=== PATIENT | female | born 1995 | race Caucasian/White ===

== ENCOUNTER → 2023-01-21 06:47 | Outpatient (CLI) | payer MEDICAID, SELFPAY ==
[2023-01-23 21:28] LABS: Progesterone 9.1
== END ==
PROVIDERS: PCP Nurse Practitioner Obstetrics & Gynecology; Visit Provider Nurse Practitioner Obstetrics & Gynecology
DX: Z34.91 Encounter for supervision of normal pregnancy, unspecified, first trimester (principal); Z3A.08 8 weeks gestation of pregnancy
CPT/HCPCS: 36415; 84144; 84702

== ENCOUNTER → 2023-01-21 13:48 | Outpatient (CLI) | payer MEDICAID, SELFPAY | PROVIDERS: Visit Provider Nurse Practitioner Obstetrics & Gynecology | DX: Z34.90 Encounter for supervision of normal pregnancy, unspecified, unspecified trimester (principal) | CPT/HCPCS: 36415; 84144; 84702 ==

== ENCOUNTER → 2023-01-27 15:06 | Outpatient (CLI) | payer MEDICAID, SELFPAY ==
--- NOTE | 2023-01-27 15:09 | US_ITS ---
PROCEDURE: US OB <= 14 WEEKS FETUS CLINICAL INDICATION: for dates COMPARISON: No exams were available for comparison FINDINGS: Transvaginal transabdominal sonographic images of the pelvis were obtained. From her last menstrual period she is 9weeks 4days. An intrauterine gestational sac is present with a pole with a crown-rump length of 2.32cm This correlates to a gestational age of 9weeks 1day. heart tones are present with an FHR of 172bpm. Yolk sac is noted. The yolk sac measures 4.9mm. The right ovary is seen transabdominally and appears normal. The left ovary is not visualized. There is no fluid in the cul-de-sac. IMPRESSION: 1. Viable fetus within the uterine cavity. 2. Fetus measures 9 weeks and 1 day. This makes her MIR 08/31/2023. 3. Right ovary is seen and appears normal. Left ovary is not visualized. 4. No fluid in the cul-de-sac Dictated by: Fernando Price MD 01/27/2023 18:45 Fernando Price MD in [facility] 01/27/2023 18:45
== END ==
PROVIDERS: PCP Internal Medicine; Visit Provider Nurse Practitioner Obstetrics & Gynecology
DX: Z34.91 Encounter for supervision of normal pregnancy, unspecified, first trimester (principal); Z3A.09 9 weeks gestation of pregnancy
CPT/HCPCS: 76801

== ENCOUNTER 2023-03-18 15:11 | Outpatient (CLI) | payer MEDICAID, SELFPAY ==
[2023-03-18 15:31] LABS: Basophils % 0.4 % (0.1-2.0); Eosinophils # 0.2 K/mm3 (0.0-0.4); Hematocrit 36.5 % (37.0-47.0); Hemoglobin 12.3 g/dL (12.2-16.2); Lymphocytes # 1.8 K/mm3 (0.7-4.5); Mean Corpuscular HGB Conc 33.6 g/dL (31.8-35.4); Mean Corpuscular Hemoglobin 27.7 pg (27.0-31.2); Mean Corpuscular Volume 82.4 fl (81-99); Monocytes # 0.3 K/mm3 (0.1-1.0); Monocytes % 3.2 % (1.7-9.3); Neutrophils # 6.9 K/mm3 (1.8-7.8); Neutrophils % 75.3 % (37.0-80.0); Platelet Count 297 K/mm3 (142-424); Red Blood Count 4.43 M/mm3 (4.20-5.40); Red Cell Distribution Width 16.7 % (11.5-17.5); White Blood Count 9.2 K/mm3 (4.8-10.8)
[2023-03-20 05:44] LABS: HIV Screen 4th Generation wRfx Non Reactive (Non Reactive)
[2023-03-20 08:29] LABS: Rubella Antibodies, IgG 2.79 index (Immune >0.99)
[2023-03-20 12:49] LABS: Rapid Plasma Reagin Ab Titer Non Reactive titer (NonRea<1:1)
[2023-03-25 09:33] LABS: Hepatitis B Surface Antigen Negative; Hepatitis C Antibody Non Reactive
[2023-03-25 09:34] LABS: Progesterone 34.3
== END 2023-03-18 23:59 ==
LOC: LAB 15:11
PROVIDERS: Visit Provider Nurse Practitioner Obstetrics & Gynecology
DX: N92.6 Irregular menstruation, unspecified (principal); Z34.92 Encounter for supervision of normal pregnancy, unspecified, second trimester; Z3A.16 16 weeks gestation of pregnancy
CPT/HCPCS: 36415; 84144; 85025; 86593; 86703; 86762; 86850; 87340; 87380; G0432

== ENCOUNTER 2023-04-15 13:53 | Outpatient (CLI) | payer MEDICAID, SELFPAY ==
--- NOTE | 2023-04-15 14:01 | US_ITS ---
PROCEDURE: US OB /MATERNAL DETAIL CLINICAL INDICATION: 20 week anatomy scan COMPARISON: No exams were available for comparison FINDINGS: Transabdominal sonographic images of the pelvis were obtained. From her established due date she is 20 weeks 2 days. Single viable intrauterine gestation. Cephalic position. Placenta: Anteriorplacenta grade 1. There is an average amount of fluid. The cervix appears satisfactory. Closed and measuring 4.3 cm in length. Complete survey performed and was unremarkable on the submitted images as in PACS. No discrete anomalies identified on survey imaging by technologist. Active fetus. Three-vessel cord with satisfactory umbilical cord insertion. 4- chamber heart noted. Situs, aortic arch, LVOT, three-vessel view appear normal. Survey of brain & ventricles Unremarkable. Cerebellum, thalamus, choroid plexus, cisterna magna appear normal. Face and neck survey unremarkable. Profile, nasion, lips and nose appeared normal. Diaphragm and chest views unremarkable. Abdomen: Both kidneys noted and unremarkable. Stomach and bladder noted and satisfactory. Spine: Survey of the spine satisfactory with no anomalies identified nor imaged. Cervical, thoracic, lower spine appear normal. Both arms and legs noted. Amniotic Fluid: Adequate. Measurements: Average ultrasound age 20weeks 1day. Estimated due date by ultrasound age 0609/01/2023. Estimated weight 333g BPD = 19weeks 4days HC = 20weeks 0 days AC = 20weeks 1day FL = 20weeks 3days Growth Percentile= 36 Heart Rate = 147bpm Cerebellum = 19weeks 6days Humerus = 20weeks 5days HC/AC is 1.18 FL/BPD is 0.74 FL/AC is 0.22 IMPRESSION: 1. Viable fetus in the cephalic position with an anterior placenta grade 1. 2. The fluid is within normal limits. 3. Anatomical scan appears normal. 4. heart anatomy was difficult to visualize due to position. Recommend repeat cardiac views in 2-4 weeks. 5. biometry is consistent with a dates. Dictated by: Fernando Price MD 04/15/2023 16:49 Fernando Price MD in [facility] 04/15/2023 16:49
== END 2023-04-15 23:59 ==
LOC: RAD 13:54
PROVIDERS: Visit Provider Nurse Practitioner Obstetrics & Gynecology
DX: Z34.92 Encounter for supervision of normal pregnancy, unspecified, second trimester (principal); Z3A.20 20 weeks gestation of pregnancy
CPT/HCPCS: 76811

== ENCOUNTER 2023-04-30 13:00 | Outpatient (CLI) | payer MEDICAID, SELFPAY ==
--- NOTE | 2023-04-30 13:05 | US_ITS ---
PROCEDURE: US OB FOLLOW UP CLINICAL INDICATION: Re-evaluate cardiac scan COMPARISON: US US OB /MATERNAL DETAIL from 04/15/2023 FINDINGS: Transabdominal sonographic images of the pelvis were obtained. The following parameters are obtained: From her established due date she is 22weeks 3days Viable fetus in the breech then turned to cephalic presentation with an anterior placenta grade 1. The cervix measures 4.3 cm. Amniotic fluid appears normal. heart rate: 139bpm bpm. No obvious anomalies evident. profile seen, kidneys, three-vessel cord, LVOT, RVOT, three-vessel view, four-chamber view appear normal. IMPRESSION: 1. Viable fetus in the cephalic presentation with an anterior placenta grade 1. 2. The fluid is within normal limits. 3. Cardiac scan today appears normal. Somewhat difficult examination due to position. 4. Limited anatomic scan appears normal. Dictated by: Fernando Price MD 04/30/2023 15:22 Fernando Price MD in [facility] 04/30/2023 15:22
== END 2023-04-30 23:59 ==
LOC: RAD 13:03
PROVIDERS: Visit Provider Nurse Practitioner Obstetrics & Gynecology
DX: O26.892 Other specified pregnancy related conditions, second trimester (principal); Z3A.22 22 weeks gestation of pregnancy; Z36.2 Encounter for other antenatal screening follow-up
CPT/HCPCS: 76816

== ENCOUNTER 2023-06-11 12:18 | Outpatient (CLI) | payer MEDICAID, SELFPAY ==
[2023-06-11 12:55] LABS: Basophils # 0.1 K/mm3 (0-0.2); Basophils % 0.6 % (0.1-2.0); Eosinophils # 0.2 K/mm3 (0.0-0.4); Eosinophils % 1.5 % (0.1-12.0); Hematocrit 38.5 % (37.0-47.0); Hemoglobin 12.4 g/dL (12.2-16.2); Lymphocytes # 1.8 K/mm3 (0.7-4.5); Lymphocytes % 15.7 % (10-50); Mean Corpuscular HGB Conc 32.2 g/dL (31.8-35.4); Mean Corpuscular Hemoglobin 29.4 pg (27.0-31.2); Mean Platelet Volume 8.3 fl (7.4-10.4); Monocytes # 0.4 K/mm3 (0.1-1.0); Monocytes % 3.3 % (1.7-9.3); Neutrophils # 9.2 K/mm3 (1.8-7.8); Neutrophils % 78.9 % (37.0-80.0); Platelet Count 308 K/mm3 (142-424); Red Blood Count 4.23 M/mm3 (4.20-5.40); Red Cell Distribution Width 15.5 % (11.5-17.5); White Blood Count 11.6 K/mm3 (4.8-10.8)
[2023-06-11 13:30] LABS: Glucose,Fasting 94 mg/dl (74-100)
[2023-06-11 14:37] LABS: Glucose 1 Hour 154 mg/dL (74-100)
== END 2023-06-11 23:59 ==
LOC: LAB 12:18
PROVIDERS: PCP Internal Medicine; Visit Provider Nurse Practitioner Obstetrics & Gynecology
DX: O26.892 Other specified pregnancy related conditions, second trimester (principal); Z3A.20 20 weeks gestation of pregnancy
CPT/HCPCS: 36415; 82951; 85025

== ENCOUNTER 2023-07-24 09:56 | Outpatient (CLI) | payer MEDICAID, SELFPAY ==
[2023-07-24 11:11] LABS: Glucose,Fasting 99 mg/dl (74-100)
[2023-07-24 12:06] LABS: Glucose 1 Hour 190 mg/dL (74-100)
[2023-07-24 14:33] LABS: Glucose 2 Hour 180 mg/dL (74-100)
[2023-07-24 14:34] LABS: Glucose 3 Hour 137 mg/dL (74-100)
== END 2023-07-24 23:59 | disposition home or self-care (01) ==
LOC: LAB 09:56
PROVIDERS: PCP Internal Medicine; Visit Provider Nurse Practitioner Obstetrics & Gynecology
DX: O26.893 Other specified pregnancy related conditions, third trimester (principal); Z3A.34 34 weeks gestation of pregnancy
CPT/HCPCS: 36415; 82951

== ENCOUNTER 2023-08-06 12:35 | Outpatient (CLI) | payer MEDICAID, SELFPAY ==
--- NOTE | 2023-08-06 12:39 | US_ITS ---
PROCEDURE: US OB BIOPHYSICAL PROFILE CLINICAL INDICATION: lga COMPARISON: US US OB /MATERNAL DETAIL from 04/15/2023 US US OB FOLLOW UP from 04/30/2023 FINDINGS: Transabdominal sonographic images of the uterus were obtained. From her established due date she is 37weeks 3days. The following parameters are obtained: Viable Fetus in the cephalic presentation with an anterior placenta grade 2. Average ultrasound age is 36weeks 6days Estimated weight 3,163g 7 lb 0 oz. Cervix measures 3.48 cm. Measurements: heart Rate = 129bpm BPD = 34weeks 1day, 2 percentile HC = 37weeks 4days, 29 percentile AC = 38weeks 0 days, 79 percentile FL = 37weeks 2days, 45 percentile HC/AC is 0.97 FL/BPD is 0.86 FL/AC is 0.21 55 percentile Amniotic fluid index: 18.46cm, MVP 7.87 cm. Qualitative AFV:2 Breathing movements: 2 Gross Body Movements: 2 Tone: 2 Biophysical profile score: 8 No obvious anomalies evident.Kidneys, profile, nasion, stomach, bladder, four-chamber heart, three-vessel cord appear normal. IMPRESSION: 1. Viable fetus in the cephalic presentation with an anterior placenta grade 2. 2. The fluid is within normal limits with an amniotic fluid index of 18.46 cm, MVP 7.87 cm. 3. Biophysical profile is 8/8 with good breathing movement and movement seen. 4. There has been good interval growth with the fetus currently 55th percentile. 5. Limited anatomical scan appears normal. Dictated by: Fernando Price MD 08/06/2023 15:05 Fernando Price MD in [facility] 08/06/2023 15:05
== END 2023-08-06 23:59 | disposition home or self-care (01) ==
LOC: RAD 12:36
PROVIDERS: PCP Pediatrics; Visit Provider Nurse Practitioner Obstetrics & Gynecology
DX: O36.63X0 Maternal care for excessive fetal growth, third trimester, not applicable or unspecified (principal); Z3A.36 36 weeks gestation of pregnancy
CPT/HCPCS: 76816; 76819; 86403

== ENCOUNTER 2023-08-06 16:50 | Outpatient (CLI) | payer MEDICAID, SELFPAY | END 2023-08-06 23:59 | disposition home or self-care (01) | LOC: LAB.DROPOF 16:50 | PROVIDERS: PCP Nurse Practitioner Obstetrics & Gynecology; Visit Provider Nurse Practitioner Obstetrics & Gynecology | DX: O26.893 Other specified pregnancy related conditions, third trimester (principal); Z3A.36 36 weeks gestation of pregnancy; B95.1 Streptococcus, group B, as the cause of diseases classified elsewhere ==

== ENCOUNTER 2023-08-24 04:51 | Inpatient (IN) | payer MEDICAID, SELFPAY ==
[2023-08-21 15:15] VITALS: BMI 46.3
[2023-08-24] VITALS (7 sets, daily range): BP systolic 100–136; BP diastolic 50–81; PULSE 77–94; RESP 14–20; TEMP 36.2–36.6; O2SAT 98–100; BMI 46.3
[2023-08-24 06:10] LABS: Microscopic, Urine URINE MICROSCOPIC (MICROSCOPIC)
[2023-08-24 06:14] LABS: Appearance,Urine CLEAR (Clear); Bilirubin,Urine Negative (Negative); Blood, Urine Negative (Negative); Color,Urine YELLOW (Yellow); Glucose,Urine (UA) Negative (Negative); Ketones,Urine TRACE (Negative); Leukocyte Esterase,Urine Negative (Negative); Nitrate,Urine Negative (Negative); PH,Urine 6.5 (5.0-8.5); Protein,Urine 1+ (Negative); Specific Gravity, Urine >= 1.030 (1.005-1.030); Urobilinogen,Urine 0.2 EU/dl (0.2)
[2023-08-24 06:26] LABS: Basophils # 0.1 K/mm3 (0-0.2); Basophils % 1.1 % (0.1-2.0); Eosinophils # 0.2 K/mm3 (0.0-0.4); Eosinophils % 1.8 % (0.1-12.0); Hematocrit 38.6 % (37.0-47.0); Hemoglobin 12.8 g/dL (12.2-16.2); Lymphocytes # 2.6 K/mm3 (0.7-4.5); Lymphocytes % 26.6 % (10-50); Mean Corpuscular HGB Conc 33.2 g/dL (31.8-35.4); Mean Corpuscular Volume 84.2 fl (81-99); Mean Platelet Volume 10.9 fl (7.4-10.4); Monocytes # 0.4 K/mm3 (0.1-1.0); Monocytes % 3.8 % (1.7-9.3); Neutrophils # 6.5 K/mm3 (1.8-7.8); Neutrophils % 66.6 % (37.0-80.0); Platelet Count 261 K/mm3 (142-424); Red Blood Count 4.58 M/mm3 (4.20-5.40); Red Cell Distribution Width 15.8 % (11.5-17.5); White Blood Count 9.7 K/mm3 (4.8-10.8)
[2023-08-24 06:32] LABS: Chloride 104 mmol/L (98-107)
[2023-08-24 06:33] LABS: Potassium 3.8 mmoL/L (3.5-5.1); Sodium 133 mmol/L (136-145)
[2023-08-24 06:36] LABS: Anion Gap 10.8 mEq/L (5-15); Blood Urea Nitrogen 6 mg/dl (7-17); Calcium 9.1 mg/dl (8.4-10.2); Carbon Dioxide 22 mmol/L (22.0-30.0); Creatinine Clearance Estimated 103 mL/min (50-200); Estimated Glomerular Filt Rate 122 ml/min (>60); GFR (African American) 147 ML/MIN (>60); Glucose 104 mg/dl (74-100)
[2023-08-24 06:42] LABS: Amphetamine/Metha Screen,Urine Negative ng/ml (<1000); Barbiturates Screen,Urine Negative ng/ml (<200)
[2023-08-24 06:43] LABS: Benzodiazepines Screen,Urine Negative ng/ml (<200)
[2023-08-24 06:44] LABS: Cannabinoid Screen,Urine Positive ng/ml (<50)
[2023-08-24 06:45] LABS: Cocaine Screen,Urine Negative ng/ml (<300); Methadone Screen,Urine Negative ng/ml (<300)
[2023-08-24 06:47] LABS: Opiate Screen,Urine Negative ng/ml (<300); Phencyclidine Screen,Urine Negative ng/ml (<25)
[2023-08-24 06:57] LABS: Bacteria,Urine 1+ /lpf; Squamous Epithelial Cell,Urine 50-100 #/hpf (0-5)
[2023-08-24] MEDS: CEFAZOLIN SODIUM 2 GM in 0.9 % SODIUM CHLORIDE 100 ML IV ×3 (07:24→23:15)
--- NOTE | 2023-08-24 09:17 | P.PNANES_ITS ---
[facility] Disclaimer: The information contained in this section may have been updated after the patient was seen, as this information can be updated by other users. Medical History Tobacco use complicating delivery delivered Surgical History History of History of tonsillectomy Family History Other Anemia Cancer Coronary artery disease Diabetes Substance abuse Social History Smoking Status: Current every day smoker tobacco type: e-cigarettes alcohol intake: never substance use type: marijuana current occupational status: unemployed Travel in the last 8 weeks: None [facility] Anesthesia Checklist Patient Identification Patient Identification: Verbal (Name & ) Structural Data Admitted From: Inpatient Planned Operative Procedure/s: c/section NPO Status Verified Time NPO: 00:00 Airway Assessment Mallampati Score:: Class II C-Spine Mobility Assessed: Yes TMJ Mobility Assessed: Yes Dentition: Good Dentition Neurological Assessment Level of Consciousness: Awake, Alert and Appropriate Anesthesia Plan Anesthesia Risk discussed: Yes Anesthesia Plan: Verified ASA Class: II Anesthesia Type: Spinal
--- NOTE | 2023-08-24 09:19 | P.PNANES_ITS ---
[facility] Anesthesia Record Part I Anesthesia Record I Intake, IV Amount: 1,500 Hydration: Adequate Estimated blood loss (mL): 300 Urine output (mL): 200 Blood Pressure: 108/52 SaO2: 99 Pulse Rate: 87 Airway Patency: Patent Respiratory Rate: 14 Temperature: 97.2 F Patient is:: Awake and Stable Stable to PACU at:: 08:30
[2023-08-24] MEDS: IBUPROFEN 400 MG TABLET 800 MG PO ×2 (09:24→16:09)
[2023-08-24] MEDS: ACETAMINOPHEN 500MG TAB 1000 MG PO ×3 (09:26→21:46)
[2023-08-24] MEDS: OXYTOCIN/RINGERS LACTATE 30 UNITS/500 ML BAG 40 UNITS IV (09:26)
--- NOTE | 2023-08-24 09:37 | EXP.OP.NOTE ---
Date of procedure: 08/24/23 Pre-op Diagnosis:: Term , previous section, Post-op Diagnosis:: Term , previous section Procedure performed:: Repeat lower segment transverse Surgeon:: Fernando Price MD Associate Curator(s):: Dr. Cat CRIBBER:: Leonel Crowder Anesthesia: spinal Estimated blood loss (mL): 300 Clinical Note:: She is a 27-year-old 2 para 1 at 39 weeks gestational age. She had a previous section. She has extremely short stature. As result of that she was offered repeat lower segment transverse section at term. Operative findings:: She delivered a liveborn male child at 7:53 AM on the morning of August 24, 2023. The baby had Apgars of 8 at 1 minute and 9 at 5 minutes. Ovaries and tubes appeared normal. Operative note:: She was taken to the operating room where spinal anesthesia was found be adequate. She was prepped and draped in normal sterile fashion in the supine position. A Dorado catheter was in the bladder. A Pfannenstiel skin incision was made with knife then carried through to the underlying layer of fascia with cautery. The fascia was opened in the midline with cautery and extended laterally using Sanchez scissors. Chanelle clamps were applied to the superior aspect of the fascial incision which was tented up and the underlying rectus muscles dissected off using cautery. The [place] clamps were then applied to the inferior aspect of the fascial incision which in a similar fashion was tented up and the underlying rectus muscles dissected off using cautery. The rectus muscles were then in the midline, the peritoneum identified, and entered sharply. This incision was then extended superiorly and inferiorly with cautery.. An Ranjit retractor was then inserted into the abdominal cavity. Bladder peritoneum was opened midline extended laterally using Metzenbaum scissors. Transverse incision was made through the uterine muscle through to the amnion. This incision was then extended superiorly and inferiorly using the fingers as traction. The amnion was entered sharply with knife. There was clear amniotic fluid. The 's head was then delivered atraumatically. There was a loose nuchal cord which was easily reduced. This was followed by the anterior shoulder and the rest of the 's body atraumatically. The oropharynx and nasopharynx were bulb suctioned. The infant was vigorous so we allowed the cord to continue to pulsate for approximately 1 minute. The cord was then doubly clamped and cut. The infant was then handed off to the nurses who assigned Apgars of 8 at 1 minute and 9 at 5 minutes. We then obtained cord blood. Using gentle traction on the cord and fundal massage I was able to easily deliver the placenta intact. It had a normal three-vessel cord. The uterus was then cleared of clots and debris . The uterine incision was then closed using running 0 Vicryl suture in a locked fashion. A second layer of the same suture was used to imbricate the first layer. The gutters and cul-de-sac were then cleared of clots and debris. Once again hemostasis was assured. I elected to spray Surgicel along the uterine incision. The peritoneum was then closed with 2-0 Vicryl suture followed by reapproximation of the rectus muscle using 0 Vicryl suture. The fascia was closed using running #1 Vicryl suture. The subcutaneous tissues were then irrigated with warm water followed by closure Bakari's fascia using running 2-0 Monocryl suture. The skin was closed with absorbable nichole. I then cleaned the skin with Hibiclens. Sterile dressings were applied. Anesthesia then performed a tap block under ultrasound guidance. She tolerated the procedure well and was taken to the recovery room in excellent condition. All sponges, instrument and needle counts were correct. Estimated blood loss was approximately 300 mL.. Condition: stable Disposition: PACU Specimens:: Products of conception Complications:: None
--- NOTE | 2023-08-24 09:42 | P.HP_ITS ---
History of Present Illness *Admission Date: 08/24/23 *Reason for visit:: Term , previous section *History of present illness: She is a 27-year-old 2 para 1 whose had a previous section. She has extremely short stature. As result of that she was offered repeat lower segment transverse section at term. O+ blood Rubella immune Group B streptococcus positive. [facility] Disclaimer: The information contained in this section may have been updated after the patient was seen, as this information can be updated by other users. Medical History (Updated 08/24/23 @ 09:44 by Fernando Price MD) Tobacco use complicating delivery delivered Surgical History History of History of tonsillectomy Family History Substance abuse Diabetes Coronary artery disease Anemia Cancer Social History Smoking Status: Current every day smoker tobacco type: e-cigarettes alcohol intake: never substance use type: marijuana current occupational status: unemployed Travel in the last 8 weeks: None Review of Systems Review of Systems Review of systems:: pertinent systems reviewed and negative unless documented below Meds Home Medications and Allergies Home Medications Medication Instructions Recorded Confirmed Type vits no.126-ferrous fum 1 tab PO DAILY #30 tabs 01/21/23 08/24/23 Rx 28 mg iron-folic acid 800 mcg tablet (Classic ) ferrous sulfate 325 mg (65 mg 325 mg PO DAILY #30 tabs 05/13/23 08/24/23 Rx iron) tablet New Prescriptions to Start Prescriptions: Allergies Allergy/AdvReac Type Severity Reaction Status Date / Time No Known Allergies Allergy Verified 08/19/23 16:02 Exam Data for Last 24 hours Vital signs and Labs for Last 24 Hours: Temp Pulse Resp BP Pulse Ox O2 Del Method 97.2 F L 87 14 108/52 L 100 Room Air 08/24/23 09:20 08/24/23 09:20 08/24/23 09:20 08/24/23 09:20 08/24/23 09:00 08/24/23 08:30 Laboratory Results - last 24 hr 08/24/23 05:45: Urine Color Yellow, Urine Appearance Clear, Urine pH 6.5, Ur Specific [place] >= 1.030, Urine Protein 1+, Urine Glucose (UA) Negative, Urine Ketones Trace, Urine Blood Negative, Urine Nitrate Negative, Urine Bilirubin Negative, Urine Urobilinogen 0.2, Ur Leukocyte Esterase Negative, Urine RBC None, Urine WBC 10-20, Ur Squamous Epith Cells 50-100, Urine Bacteria 1+, Urine Opiates Screen Negative, Urine Methadone Screen Negative, Ur Barbituates Screen Negative, Ur Phencyclidine Scrn Negative, Ur Amphetamines Screen Negative, U Benzodiazepines Scrn Negative, Urine Cocaine Screen Negative, U Marijuana (THC) Screen Positive H 08/24/23 05:50: WBC 9.7, RBC 4.58, Hgb 12.8, Hct 38.6, MCV 84.2, MCH 28.0, MCHC 33.2, RDW 15.8, Plt Count 261, MPV 10.9 H, Neut % (Auto) 66.6, Lymph % (Auto) 26.6, [place] % (Auto) 3.8, Eos % (Auto) 1.8, Baso % (Auto) 1.1, Neut # (Auto) 6.5, Lymph # (Auto) 2.6, [place] # (Auto) 0.4, Eos # (Auto) 0.2, Baso # (Auto) 0.1, Sod ium 133 L, Potassium 3.8, Chloride 104, Carbon Dioxide 22, Anion Gap 10.8, BUN 6 L, Creatinine 0.60, Estimated Creat Clear 103, Estimated GFR 122, Est GFR ( Amer) 147, Glucose 104 H, Calcium 9.1, Blood Type O Positive, Antibody Screen Negative I & O for Last 24 hours: Intake & Output 08/21/23 08/22/23 08/23/23 08/24/23 11:59 11:59 11:59 11:59 Intake Total 1500 / 1500 Balance 1500 / 1500 Weight 237 lb 237 lb Constitutional Constitutional: no acute distress *Routine HEENT Exam Head: Present normocephalic Eye: Present EOMI and PERRL ENT: Present mucous membranes moist *Routine Neck Exam Neck: Present supple; Absent lymphadenopathy *Routine Respiratory Exam Respiratory: Present CTA bilaterally *Routine Cardiovascular Exam Cardiovascular: Present RRR *Routine Abdominal Exam Abdominal: Present soft and normoactive bowel sounds; Absent tenderness *Routine Rectal Exam Rectal:: deferred *Routine Genitalia Exam Genitalia:: deferred *Routine Extremities Exam Extremities: Absent cyanosis, clubbing or edema *Routine Skin Exam Skin: Present warm; Absent rash *Routine Neurological Exam Neurological: Present alert and oriented X3 Assessment and Plan *Assessment and plan (1) Large for gestational age fetus affecting management of mother, antepartum: Status: Acute Qualifiers: Fetus number: single or unspecified fetus Qualified Code(s): O36.60X0 - Maternal care for excessive growth, unspecified trimester, not applicable or unspecified Category: Medical Code(s): O36.60X0 - Maternal care for excessive growth, unspecified trimester, not applicable or unspecified (2) History of : Status: Acute Category: Surgical Code(s): Z98.891 - History of uterine scar from previous surgery (3) Tobacco use complicating : Status: Acute Qualifiers: Trimester: third trimester Qualified Code(s): O99.333 - Smoking (tobacco) complicating , third trimester Category: Medical Code(s): O99.330 - Smoking (tobacco) complicating , unspecified trimester (4) delivery delivered: Status: Acute Category: Medical Code(s): O82 - Encounter for delivery without indication Plan She is admitted for repeat lower segment transverse section.
[2023-08-24 13:56] LABS: Microscopic,Cath URINE MICROSCOPIC (MICROSCOPIC)
[2023-08-24 14:07] LABS: Appearance,Urine/Cath CLEAR (Clear); Blood, Urine/Cath Negative (Negative); Color,Urine/Cath YELLOW (Yellow); Glucose,Urine/Cath (UA) Negative (Negative); Ketones,Urine/Cath Negative (Negative); Leukocyte Esterase,Cath Negative (Negative); Nitrate,Cath Negative (Negative); PH,Urine/Cath 7.5 (5.0-8.5); Protein,Urine/Cath 2+ (Negative); Specific Gravity, Urine/Cath 1.025 (1.005-1.030)
[2023-08-24 14:16] LABS: Bilirubin,Cath 1+ (Negative)
[2023-08-24 14:45] LABS: Bacteria,Urine/Cath TRACE /lpf; RBC,Urine/Cath Occasional # /hpf (0-3); WBC,Urine/Cath Occasional #/hpf (0-3)
[2023-08-24] MEDS: PRENATAL MULTIVITAMIN W/IRON 1 EACH PO (16:09)
[2023-08-25] MEDS: ACETAMINOPHEN 500MG TAB 1000 MG PO ×4 (03:05→20:34)
[2023-08-25] MEDS: IBUPROFEN 400 MG TABLET 800 MG PO ×3 (03:06→17:09)
[2023-08-25 04:48] VITALS: BP 123/68; PULSE 92; RESP 15; TEMP 36.8; O2SAT 97
[2023-08-25 07:00] LABS: Hematocrit 31.2 % (37.0-47.0); Hemoglobin 10.1 g/dL (12.2-16.2)
--- NOTE | 2023-08-25 08:10 | CARE MANAGER ---
Received care management consult for Patient being positive for marijuana upon admission. Baby urine negative for this. Will await cord screen and address from there if needed. DION Ayala
--- NOTE | 2023-08-25 08:48 | P.PN_ITS ---
Subjective *Date: 08/25/23 *Time: 08:48 Interval history: She is doing very well this morning. She is eating and drinking and ambulating. She is bottlefeeding. Her lochia is normal. Her hemoglobin is stable. Her pain is well-controlled with the tap block. Medical Exam Vital signs and Labs for Last 24 Hours: Vital Signs Temp Pulse Pulse Resp BP BP Pulse Ox 08/25/23 04:48 98.2 F 92 H 15 123/68 97 08/24/23 21:30 97.8 F 90 16 130/81 100 08/24/23 09:20 97.2 F L 87 14 108/52 L 08/24/23 09:00 81 18 100/55 L 100 08/24/23 08:50 90 18 104/56 L 100 O2 Del Method 08/25/23 04:48 Room Air 08/24/23 21:30 Room Air 08/24/23 09:20 08/24/23 09:00 08/24/23 08:50 Laboratory Results - last 24 hr 08/24/23 : Urine Color Yellow, Urine Appearance Clear, Urine pH 7.5, Ur Specific [place] 1.025, Urine Protein 2+, Urine Glucose (UA) Negative, Urine Ketones Negative, Urine Blood Negative, Urine Nitrate Negative, Urine Bilirubin 1+ A, Urine Urobilinogen 1.0, Ur Leukocyte Esterase Negative, Urine RBC Occasional, Urine WBC Occasional, Ur Squamous Epith Cells 3-5, Urine Bacteria Trace 08/25/23 06:35: Hgb 10.1 L, Hct 31.2 L I & O for Labs for Last 24 Hours: Intake & Output 08/22/23 08/23/23 08/24/23 08/25/23 11:59 11:59 11:59 11:59 Intake Total 1500 / 1500 Balance 1500 / 1500 Weight 237 lb 237 lb Head: Present normocephalic ENT: Present normal exam Neck: Present normal inspection Respiratory: Present normal respiratory effort; Absent accessory muscle use Assessment and Plan *Assessment and plan (1) delivery delivered: Status: Acute Category: Medical Code(s): O82 - Encounter for delivery without indication (2) Large for gestational age fetus affecting management of mother, antepartum: Status: Acute Qualifiers: Fetus number: single or unspecified fetus Qualified Code(s): O36.60X0 - Maternal care for excessive growth, unspecified trimester, not applicable or unspecified Category: Medical Code(s): O36.60X0 - Maternal care for excessive growth, unspecified trimester, not applicable or unspecified (3) History of : Status: Acute Category: Surgical Code(s): Z98.891 - History of uterine scar from previous surgery (4) Tobacco use complicating : Status: Acute Qualifiers: Trimester: third trimester Qualified Code(s): O99.333 - Smoking (tobacco) complicating , third trimester Category: Medical Code(s): O99.330 - Smoking (tobacco) complicating , unspecified trimester (5) Positive urine drug screen: Problem Comment: THC Status: Acute Category: Medical Code(s): R82.5 - Elevated urine levels of drugs, medicaments and biological substances Plan She is doing very well this morning. Her pain is well-controlled. She is bottlefeeding. We will plan to send her home tomorrow.
--- NOTE | 2023-08-25 09:23 | P.PNANES_ITS ---
[facility] Anesthesia Record Part II Anesthesia Record Part II Discharge Time: 09:00 Destination: Obstetric PACU nurse assessment reviewed?: Yes Patient Condition:: Good Anesthesia Complications:: None Swallowing reflex intact?: Yes Airway Patency: Patent Cyanosis?: No Blood Pressure: 100/55 SaO2: 100 Respiratory Rate: 81 Pulse Rate: 18 Temperature: 97.2 F Mental Status: Alert & Oriented Pain level:: 0 Nausea and/or vomitting:: None Intake, IV Amount: 0 Hydration: Adequate
[2023-08-25 09:25] VITALS: BP 100/55; PULSE 18; RESP 81; TEMP 36.2; O2SAT 100
[2023-08-25] MEDS: ALUMINUM/MAGNESIUM/SIMETHICONE 30ML UDC 30 ML PO (10:36)
[2023-08-25] MEDS: PRENATAL MULTIVITAMIN W/IRON 1 EACH PO (17:09)
[2023-08-25] MEDS: OXYCODONE 5MG IMMEDIATE RELEASE TABLET 10 MG PO (20:41)
[2023-08-25 20:44] VITALS: BP 117/78; PULSE 81; RESP 18; TEMP 36.6
[2023-08-26] MEDS: IBUPROFEN 400 MG TABLET 800 MG PO ×2 (00:47→08:51)
[2023-08-26 04:16] VITALS: BP 106/67; PULSE 78; RESP 16; TEMP 37.1; O2SAT 99
[2023-08-26] MEDS: ACETAMINOPHEN 500MG TAB 1000 MG PO ×2 (04:17→08:51)
[2023-08-26 08:45] VITALS: BP 113/69; PULSE 85; RESP 17; TEMP 36.8; O2SAT 100
--- NOTE | 2023-08-26 08:58 | P.DS_ITS ---
General Admission date:: 08/24/23 Discharge date: 08/26/23 HPI HPI HPI: She is a 27-year-old 2 para 1 whose had a previous section. She has extremely short stature. As result of that she was offered repeat lower segment transverse section at term. O+ blood Rubella immune Group B streptococcus positive. Hospital Course Hospital Course Hospital Course: Agus White is a 27 yo G2, P2 postop day #2 from a repeat low-transverse delivery at 39 weeks gestation. She is pumping. She desires a Depo shot for contraception. She was rubella immune and GBS positive with an O+ blood type. She had a male that weighed 7 pounds and 4 ounces with Apgars of 8 and 9. She is pumping and bottlefeeding. Patient is doing well, ambulating, voiding, and tolerating p.o. without difficulty, dysuria, or nausea vomiting. She desires discharge home. Routine discharge structures reviewed with patient in detail and she was understanding. All questions and concerns were addressed to the patient satisfaction Exam Data for Last 24 hours Vital signs and Labs for Last 24 Hours: Temp Pulse Resp BP Pulse Ox O2 Del Method 98.7 F 78 16 106/67 L 99 Room Air 08/26/23 04:16 08/26/23 04:16 08/26/23 04:16 08/26/23 04:16 08/26/23 04:16 08/26/23 04:16 I & O for Last 24 hours: Intake & Output 08/23/23 08/24/23 08/25/23 08/26/23 23:59 23:59 23:59 23:59 Intake Total 1500 / 1500 0 / 0 Balance 1500 / 1500 0 / 0 Weight 237 lb Narrative: General: patient is alert oriented in no acute distress and responds appropriately to questions. Appears to be in minimal pain. Sitting up in the chair and doing well HEENT: NCAT, EOMI, moist mucous membranes, neck supple with full ROM Cardiovascular: RRR +S1/S2, no murmurs or rubs Pulmonary: Clear to auscultation bilaterally, nonlabored breathing, symmetric chest rise Abdominal: Fundus below the umbilicus, firm, and tenderness appropriate for the period. Extremities: trace edema, no tenderness or cyanosis noted Skin: Normal turgor, intact, warm. Negative for erythema, pallor, petechia, or lesions Neurologic: Negative for sensory or motor deficit Psychiatric: Normal affect, normal thought process, good judgment and insight, no depression or anxious mood appreciated. Constitutional Constitutional: no acute distress *Routine HEENT Exam Head: Present normocephalic Eye: Present EOMI and PERRL ENT: Present mucous membranes moist *Routine Neck Exam Neck: Present supple; Absent lymphadenopathy *Routine Respiratory Exam Respiratory: Present CTA bilaterally *Routine Cardiovascular Exam Cardiovascular: Present RRR *Routine Abdominal Exam Abdominal: Present soft and normoactive bowel sounds; Absent tenderness *Routine Extremities Exam Extremities: Absent cyanosis, clubbing or edema *Routine Skin Exam Skin: Present warm; Absent rash *Routine Neurological Exam Neurological: Present alert and oriented X3 DS: Diagnosis Discharge Diagnosis (1) delivery delivered: Status: Acute Code(s): O82 - Encounter for delivery without indication Problem details: Stable. POD#2 s/p RLTCS and BSG -Doing well. VSS. Serial lochia and fundal checks. -O+/antibody negative -Pumping and bottle feeding, male infant -Contraception: Depo-Provera prior to discharge -Follow-up 2 weeks for routine visit and incision check #Anemia -Hemoglobin: 12.8-->10.1 -Likely secondary to acute blood loss from surgery. Normocytic and not anemic prior to delivery. - asymptomatic anemia noted. Vitals stable. -DC with p.o. iron -Dispo: home today pending mother/ status (2) Large for gestational age fetus affecting management of mother, antepartum: Status: Acute Code(s): O36.60X0 - Maternal care for excessive growth, unspecified trimester, not applicable or unspecified Qualifiers: Fetus number: single or unspecified fetus Qualified Code(s): O36.60X0 - Maternal care for excessive growth, unspecified trimester, not applicable or unspecified (3) History of : Status: Acute Code(s): Z98.891 - History of uterine scar from previous surgery (4) Tobacco use complicating : Status: Acute Code(s): O99.330 - Smoking (tobacco) complicating , unspecified trimester Qualifiers: Trimester: third trimester Qualified Code(s): O99.333 - Smoking (tobacco) complicating , third trimester (5) Positive urine drug screen: Status: Acute Code(s): R82.5 - Elevated urine levels of drugs, medicaments and biological substances Problem details: THC Meds Home Medications and Allergies Home Medications Medication Instructions Recorded Confirmed Type vits no.126-ferrous fum 1 tab PO DAILY #30 tabs 01/21/23 08/24/23 Rx 28 mg iron-folic acid 800 mcg tablet (Classic ) ferrous sulfate 325 mg (65 mg 325 mg PO DAILY #30 tabs 05/13/23 08/24/23 Rx iron) tablet acetaminophen 500 mg tablet 500 mg PO Q6H PRN fever #30 tabs 08/26/23 Rx ferrous sulfate 325 mg (65 mg 325 mg PO DAILY #30 tabs 08/26/23 Rx iron) tablet,delayed release ibuprofen 800 mg tablet 800 mg PO Q8H PRN pain #60 tabs 08/26/23 Rx oxycodone 5 mg tablet 5 mg PO Q8H PRN pain #15 tabs 08/26/23 Rx sennosides 8.6 mg tablet (Senna 8.6 mg PO BIDP PRN Constipation 08/26/23 Rx Lax) #60 tabs simethicone 125 mg tablet 125 mg PO DAILY PRN abdominal 08/26/23 Rx distention #60 tabs New Prescriptions to Start Prescriptions: acetaminophen Lainey Washington ferrous sulfate Lainey Washington ibuprofen Lainey Washington oxycodone Lainey Washington sennosides [Senna Lax] Felix,Lainey simethicone Lainey Washington Allergies Allergy/AdvReac Type Severity Reaction Status Date / Time No Known Allergies Allergy Verified 08/19/23 16:02 Discharge Plan Disposition Patient Disposition: Home, Self-Care Discharge Order Discharge Orders: Discharge Order (Routine); Ordered 08/26/23 Ordered By: Lainey Washington Follow up Plan Follow up with: Fernando Price MD [Staff Physician] - Enter time for follow up Prescriptions/Medication Reconciliation: New sennosides [Senna Lax] 8.6 mg Tablet 8.6 mg PO BIDP PRN (Reason: Constipation) Qty: 60 2RF ibuprofen 800 mg tablet 800 mg PO Q8H PRN (Reason: pain) Qty: 60 2RF acetaminophen 500 mg tablet 500 mg PO Q6H PRN (Reason: fever) Qty: 30 3RF ferrous sulfate 325 mg (65 mg iron) tablet,delayed release (DR/EC) 325 mg PO DAILY Qty: 30 3RF oxycodone 5 mg tablet 5 mg PO Q8H PRN (Reason: pain) Qty: 15 0RF simethicone 125 mg tablet 125 mg PO DAILY PRN (Reason: abdominal distention) Qty: 60 2RF Continued ferrous sulfate 325 mg (65 mg iron) tablet 325 mg PO DAILY Qty: 30 4RF Classic 28 mg iron- 800 mcg tablet 1 tab PO DAILY Qty: 30 11RF Problem Reconciliation Problems Reviewed?: Yes Patient Discharge Instructions ACTIVITY: Continue current activity DIET: regular diet Additional Instructions: Congratulations on the delivery of your sweet baby boy. It is my privilege to be a part of your [employer] team. Discharge: 1. Take 800 mg Ibuprofen every 8 hours as needed for pain. You can also take 500 to thousand mg of Tylenol in between doses, every 6-8 hours. Use prescription pain medicine for pain you feel in between 8 hour interval. -No driving while taking narcotic pain medications. In order to drive you should be able to slam on the brakes without significant abdominal pain. 2. Wean from prescription pain medicine first. Do not drive while taking it. 3. Prescription pain medicine can make you constipated. Colace can be taken 1-2 times per day as you need. Make sure to drink at least 8 cups of water per day. 4. Iron supplements can make you constipated. Colace can be taken 1-2 times per day as you need. You can take iron tablets every other day if constipation is too bad. 5. Nothing in the vagina for 6 weeks - no sex, douching, tampons. No tub baths 6. Do not lift greater than 15 pounds for 6 weeks, this is the equivalent of 2 gallons of milk. 7. Reasons to return to L&D or call On-Call doctor - fever (greater than 100.4) - heavy vaginal bleeding (soaking through 1 pad in less than 2 hours or passing clots that are egg sized) - vaginal discharge (malodorous and/or purulent) - bleeding or discharge from her incision - severe headaches, leg tenderness/edema, or any other symptoms that warrant immediate medical attention. 8. depression/blues - Normal to feel anxious/overwhelmed for first 2 weeks - Talk to your doctor if: anxiety lasts over 2 weeks, trouble bonding with baby, withdrawing from other family members, thoughts of harming yourself or others Lainey Washington DO [facility] [phone] *Nothing in the Vagina for 6 weeks* *No strenuous activity* *No heavy lifting* *No tub baths until okay's by MD* Patient Instructions: Depression, Hemorrhage, DI for , DI for Pre-eclampsia, [facility] Post Discharge Instructions Providers Primary Care Provider: Nuno Stein Admit Provider: Fernando Price Attending Provider: Fernando Price
[2023-08-26] MEDS: MEDROXYPROGESTERONE ACETATE 150MG/ML SYR 150 MG IM (11:09)
== END 2023-08-26 11:20 | disposition home or self-care (01) | DRG 787 ==
PROVIDERS: Admitting Provider Nurse Practitioner Obstetrics & Gynecology; PCP Pediatrics; Visit Provider Nurse Practitioner Obstetrics & Gynecology
PROC: 10D00Z1 Extraction of Products of Conception, Low, Open Approach (ICD-10-PCS; CPT 59514; principal; 2023-08-24 07:30)
DX: O34.211 Maternal care for low transverse scar from previous cesarean delivery (principal); D62 Acute posthemorrhagic anemia; Z3A.39 39 weeks gestation of pregnancy; Z37.0 Single live birth; O90.81 Anemia of the puerperium; O36.63X0 Maternal care for excessive fetal growth, third trimester, not applicable or unspecified; O99.334 Smoking (tobacco) complicating childbirth; F17.290 Nicotine dependence, other tobacco product, uncomplicated
CPT/HCPCS: 59514; 36415; 59025; 80048; 80307; 81001; 85014; 85018; 85025; 86850; 87086; 94761; G0283; J1050